=== PATIENT | female | born 1995 | race Caucasian/White ===

== ENCOUNTER → 2019-11-12 17:45 | Outpatient (BNVA) | payer SELFPAY | PROVIDERS: Family Provider Family Medicine; PCP Nurse Practitioner Family; Visit Provider Family Medicine | DX: R05 Cough (principal) | CPT/HCPCS: 87804 ==

== ENCOUNTER 2019-11-22 15:51 | Emergency (ER) | payer SELFPAY ==
[2019-11-22 15:54] VITALS: BP 142/85; PULSE 98; RESP 16; TEMP 36.4; O2SAT 100
[2019-11-22 17:09] LABS: Basophils % 0.4 %; Eosinophils # 0.1 10^3/uL (0.0-0.8); Eosinophils % 0.8 %; Hematocrit 41.2 % (37.0-47.0); Hemoglobin 13.8 g/dL (11.5-15.3); Lymphocytes # 3.1 10^3/uL (0.8-4.8); Lymphocytes % 41.2 %; Mean Corpuscular HGB Conc 33.5 g/dL (30.0-36.0); Mean Corpuscular Hemoglobin 26.8 pg (28.0-34.0); Mean Platelet Volume 10.3 fL (7.4-10.4); Monocytes # 0.4 10^3/uL (0.2-0.9); Neutrophils # 3.9 10^3/uL (1.8-7.7); Neutrophils % 52.5 %; Nucleated Red Blood Cells % 0 %; Platelet Count 260 10^3/cmm (130-400); Red Blood Count 5.15 10^6/uL (4.1-5.3); Red Cell Distribution Width 13.1 % (12.1-15.1); White Blood Count 7.4 10^3/uL (4.0-10.0)
[2019-11-22 17:12] LABS: HCG, Serum Qual Negative (Negative)
[2019-11-22 17:18] LABS: Alanine Aminotransferase 21 U/L (0-33); Albumin Level 4.7 g/dL (3.5-5.2); Alkaline Phosphatase 90 IU/L (35-105); Anion Gap 15.9 (5-19); Aspartate Amino Transferase 23 U/L (0-32); Blood Urea Nitrogen 9 mg/dL (6-20); Calcium 10.3 mg/dL (8.5-10.5); Carbon Dioxide 25 mmol/L (22-29); Chloride 101 mmol/L (98-107); Globulin 3.7 g/dL (1.3-4.6); Glucose 98 mg/dL (65-115); Potassium 3.9 mmol/L (3.5-5.1); Sodium 138 mmol/L (136-145); Total Bilirubin 0.3 mg/dL (0.15-1.2); Total Protein 8.4 g/dL (6.6-8.7)
--- NOTE | 2019-11-22 17:33 | W.ED.GENADLT ---
HPI - General Adult General: Chief complaint: Vaginal Bleeding Stated complaint: BLEEDING AND CRAMPING Time Seen by Provider: 11/22/19 17:33 Source: patient Mode of arrival: ambulatory Limitations: no limitations History of Present Illness: HPI narrative: Patient comes in today with abnormal vaginal bleeding. Patient stopped her control at the end of October. Since that time she has had some breakthrough bleeding. Patient appears well. Patient reports bleeding is small in the amount. Patient appears in no pain. Review of Systems General: Reports: 10 or more systems reviewed and unremarkable except in HPI and below : Reports: vaginal bleeding PFS ED PFSH: Social History (Updated 11/12/19 @ 17:39 by Viki Chow LPN) Smoking and tobacco status: current every day smoker Female Reproductive History: Date of last menstrual period: 11/10/19 Physical Exam Const: COMMON NORMALS: no apparent distress and oriented x3 GENERAL APPEARANCE: cooperative HENMT: COMMON NORMALS: normocephalic, external ears normal, EAC's normal, TM's normal bilaterally and external nose normal HEAD & SCALP: normal to inspection and normocephalic FACE & SINUS: normal facial exam NOSE: external nose normal GENERAL EAR: hearing not grossly impaired EXTERNAL EAR: Yes external ears normal EXTERNAL AUDITORY CANAL: EAC's normal TYMPANIC MEMBRANE: TM's normal bilaterally MOUTH: oral and palatal mucosa normal THROAT: posterior oropharynx normal Eye: COMMON NORMALS: PERRL and EOMs intact bilaterally PUPIL: Yes PERRL Neck/C-Spine: COMMON NORMALS: full ROM and no lymphadenopathy Lymph: LYMPHATIC: no lymphedema noted Chest: COMMONS NORMALS: inspection of chest normal and palpation of chest normal Resp: COMMON NORMALS: normal respiratory effort and clear to auscultation bilaterally AUSCULTATION: clear to auscultation bilaterally Cardio: COMMON NORMALS: regular rate and regular rhythm RATE: regular rate RHYTHM: regular rhythm GI: COMMON NORMALS: normal to inspection, nondistended, normoactive bowel sounds and non-tender : COMMON NORMALS: Yes no CVA tenderness BLADDER/KIDNEY EXAM: Yes no CVA tenderness Back/Pelvis: COMMON NORMALS: no CVA tenderness and thoracic and lumbar spine normal to inspection Extremity: COMMON NORMALS: normal to inspection GENERAL: No edema Neuro: COMMON NORMALS: oriented x3, moves all extremities and no focal motor deficits Psych: COMMON NORMALS: mental status grossly normal and cooperative Skin: COMMON NORMALS: no rashes or lesions noted GENERAL SKIN EXAM: no rashes or lesions noted Course Vital Signs: Vital signs: Vital Signs Temperature 97.6 F 11/22/19 18:02 Pulse Rate 92 11/22/19 18:02 Respiratory Rate 16 11/22/19 18:02 Blood Pressure 130/82 11/22/19 18:02 Pulse Oximetry 100 11/22/19 18:02 MDM - General Adult MDM Narrative: Medical decision making narrative: Patient comes in today with concerns for vaginal bleeding. On exam patient appears well. Respirations are even lungs are clear to auscultation. Abdomen soft nontender. Skin is warm and dry. Differential diagnosis includes UTI, miscarriage, ectopic , dysmenorrhea. Review labs were normal. No was noted on laboratory values. Hemoglobin adequate was normal. Reviewed exam with patient patient was pain-free. No signs of ectopic was noted. Reviewed exam with recommendations for follow-up and return. Lab Data: Labs: Lab Results 11/22/19 11/22/19 11/22/19 Range/Units 16:42 16:42 16:42 WBC 7.4 (4.0-10.0) 10^3/ uL RBC 5.15 (4.1-5.3) 10^6/u L Hgb 13.8 (11.5-15.3) g/dL Hct 41.2 (37.0-47.0) % MCV 80.0 L (81-99) fL MCH 26.8 L (28.0-34.0) pg MCHC 33.5 (30.0-36.0) g/dL RDW 13.1 (12.1-15.1) % Plt Count 260 (130-400) 10^3/c mm MPV 10.3 (7.4-10.4) fL Neut % (Auto) 52.5 % Lymph % (Auto) 41.2 % [place] % (Auto) 5.0 % Eos % (Auto) 0.8 % Baso % (Auto) 0.4 % Neut # (Auto) 3.9 (1.8-7.7) 10^3/u L Lymph # (Auto) 3.1 (0.8-4.8) 10^3/u L [place] # (Auto) 0.4 (0.2-0.9) 10^3/u L Eos # (Auto) 0.1 (0.0-0.8) 10^3/u L Baso # (Auto) 0.0 (0.0-0.1) 10^3/u L Nucleated RBC % (a uto) 0 % Nucleated RBCs # 0.0 /100WBC Sodium 138 (136-145) mmol/L Potassium 3.9 (3.5-5.1) mmol/L Chloride 101 (98-107) mmol/L Carbon Dioxide 25 (22-29) mmol/L Anion Gap 15.9 (5-19) BUN 9 (6-20) mg/dL Creatinine 0.7 (0.5-0.9) mg/dL GFR Calculation 102.0 (90-130) mL/min Glucose 98 (65-115) mg/dL Calcium 10.3 (8.5-10.5) mg/dL Total Bilirubin 0.3 (0.15-1.2) mg/dL AST 23 (0-32) U/L ALT 21 (0-33) U/L Alkaline Phosphata se 90 (35-105) IU/L Total Protein 8.4 (6.6-8.7) g/dL Albumin 4.7 (3.5-5.2) g/dL Globulin 3.7 (1.3-4.6) g/dL HCG, Qual Negative (Negative) Discharge Plan Discharge Patient Disposition: Home, Self-Care Clinical Impression: Vaginal bleeding Condition: Stable Prescriptions: No Action No Known Home Medications RF: 0 Discharge Orders: Discharge Order (Routine); Ordered 11/22/19 Ordered By: Yosi Almeida Referrals: Millicent Posey MD [Family Provider] - Franny Liu FNP [Primary Care Provider] - Discharge Diet: Usual diet Discharge Activity: Resume usual activity Patient Instructions: Menstruation (ED) Activity Restrictions/Additional Instructions: drink plenty of fluids Use ibuprofen as needed for pain REturn to ER for high fever or bleeding through more than one pad an hour Follow-up with primary care as needed Discharge Date/Time: 11/22/19 18:05 Coding Level of Care Code ED White Lead Grinder for Alyceg Fwd Exam Problem Focused
[2019-11-22 17:58] VITALS: BP 138/92; PULSE 98; RESP 16; TEMP 36.7; O2SAT 100
[2019-11-22 18:02] VITALS: BP 130/82; PULSE 92; RESP 16; TEMP 36.4; O2SAT 100
== END 2019-11-22 18:05 | disposition home or self-care (01) ==
PROVIDERS: Physician Assistant; Emergency Provider Nurse Practitioner Family; Family Provider Family Medicine; PCP Nurse Practitioner Family
DX: N93.9 Abnormal uterine and vaginal bleeding, unspecified (principal); F17.200 Nicotine dependence, unspecified, uncomplicated
CPT/HCPCS: 36415; 80053; 84703; 85025; 99281; 99282

== ENCOUNTER 2020-05-13 17:21 | Emergency (ER) | payer SELFPAY ==
[2020-05-13 17:29] VITALS: BP 130/83; PULSE 91; RESP 16; TEMP 36.8; O2SAT 98; BMI 30.9
[2020-05-13 18:42] LABS: Add Urine Microscopic? NO
[2020-05-13 18:48] LABS: Basophils % 0.3 %; Eosinophils # 0.1 10^3/uL (0.0-0.8); Eosinophils % 0.8 %; Hematocrit 41.9 % (37.0-47.0); Hemoglobin 13.6 g/dL (11.5-15.3); Lymphocytes % 25.1 %; Mean Corpuscular HGB Conc 32.5 g/dL (30.0-36.0); Mean Corpuscular Hemoglobin 27.1 pg (28.0-34.0); Mean Corpuscular Volume 83.6 fL (81-99); Mean Platelet Volume 10.5 fL (7.4-10.4); Monocytes # 0.6 10^3/uL (0.2-0.9); Monocytes % 4.8 %; Neutrophils # 8.24 10^3/uL (1.8-7.7); Neutrophils % 68.8 %; Nucleated Red Blood Cells % 0 %; Platelet Count 246 10^3/cmm (130-400); Red Blood Count 5.01 10^6/uL (4.1-5.3); Red Cell Distribution Width 13.4 % (12.1-15.1)
[2020-05-13 18:57] LABS: Bilirubin Urine Neg (NEGATIVE); Blood Urine Neg (Negative); Glucose Urine UA Norm (Normal); Ketones Urine Negative (Negative); Leukocyte Esterase Urine Negative (Negative); Nitrate Urine Negative (Negative); Protein Urine Neg (Negative); Urine Appearance Clear (CLEAR); Urine Color Yellow (Yellow); Urobilinogen Urine Norm (Negative); pH Urine 6 (5-7)
[2020-05-13 18:59] LABS: HCG Qualitative Urine. Negative (Negative)
[2020-05-13 19:11] LABS: Alanine Aminotransferase 10 U/L (0-33); Albumin Level 4.3 g/dL (3.5-5.2); Alkaline Phosphatase 72 IU/L (35-105); Anion Gap 13.8 (5-19); Aspartate Amino Transferase 14 U/L (0-32); Blood Urea Nitrogen 7 mg/dL (6-20); Calcium 8.9 mg/dL (8.5-10.5); Carbon Dioxide 25 mmol/L (22-29); Chloride 101 mmol/L (98-107); Globulin 3.2 g/dL (1.3-4.6); Glomerular Filtration Rate 101.1 mL/min (90-130); Glucose 92 mg/dL (65-115); Osmolality Calculated 277 mOsm/kg (285-295); Potassium 3.8 mmol/L (3.5-5.1); Sodium 136 mmol/L (136-145); Total Bilirubin 0.4 mg/dL (0.15-1.2); Total Protein 7.5 g/dL (6.6-8.7)
--- NOTE | 2020-05-13 19:13 | ED_ITS ---
HPI - Abdominal Pain General: Chief Complaint: Abdominal Pain Stated Complaint: ABD PAIN Time Seen by Provider: 05/13/20 19:12 History of Present Illness: HPI narrative: Patient is a 24-year-old female comes to the ED with abdominal pain and nausea. Abdominal pain is described as a cramping lower pelvic pain that started approximately 3 weeks ago and is continued to progress. Pain rated a 4 out of 10. She does endorse some constipation and dysuria but denies fever, hematuria, diarrhea or blood in the stools. Dysuria started today. She has had some mild nausea but no episodes of emesis. Patient endorses having daily acid reflux and takes Tums to help manage reflux. Currently here in the ED she has no acid reflux or heartburn. Patient's last period was on 04/29 and lasted 5 days. Patient says her. Bleeding usually lasts for approximately 7 days so last period was shorter than usual. Patient says she has had abdominal cramping like this before around periods but it is never lasted this long. Associated Symptoms: Reports constipation, dysuria, heartburn (Patient says she usually has daily heartburn, but no current heartburn symptoms while here in the ED.) and nausea; Denies chills, diarrhea, fever(s), hematochezia, hematuria and vomiting Related Data: Date of Last Menstrual Period: 04/29/20 Review of Systems Const: Denies: fever(s), chills or fatigue Eyes: Denies: change in vision or eye discomfort ENMT: Denies: throat pain, odynophagia, nasal discharge or nasal congestion Card: Denies: chest pain, palpitations, edema, swelling of feet/ankles, dyspnea on exertion or orthopnea Resp: Denies: dyspnea, productive cough or non-productive cough GI: Reports: abdominal pain, nausea, heartburn (Patient says she usually has daily heartburn, but no current heartburn symptoms while here in the ED.) and constipation; Denies: vomiting, diarrhea or hematochezia : Reports: dysuria; Denies: flank pain or hematuria Musc: Denies: neck pain, back pain or extremity swelling Skin/Breast: Denies: rash or new lesions Neuro: Denies: headache(s), numbness in extremities or weakness in extremities PFS ED PFSH: Social History Smoking and tobacco status: current every day smoker Female Reproductive History: Date of last menstrual period: 04/29/20 Physical Exam Const: COMMON NORMALS: no acute distress, patient oriented x3, healthy appearing and alert GENERAL APPEARANCE: cooperative and comfortable HENMT: COMMON NORMALS: normocephalic HEAD & SCALP: normocephalic MOUTH: Normal oral and palatal mucosa present THROAT: posterior oropharynx normal an d uvula midline Eye: COMMON NORMALS: Equal, round and reactive pupils present PUPIL: Yes Equal, round and reactive pupils present Neck/C-Spine: COMMON NORMALS: supple GENERAL: Yes normal visual inspection Resp: COMMON NORMALS: normal respiratory effort, No retractions, No use of accessory muscles and clear to auscultation bilaterally AUSCULTATION: clear to auscultation bilaterally Cardio: COMMON NORMALS: regular rate, regular rhythm, S1 normal heart sound present, S2 normal heart sound present, No gallops present (Cardio), No clicks present (Cardio), No murmurs present (Cardio) and Peripheral pulses 2+ throughout RATE: regular rate RHYTHM: regular rhythm HEART SOUNDS: S1 normal heart sound present and S2 normal heart sound present PERIPHERAL PULSES: Peripheral pulses 2+ throughout GI: COMMON NORMALS: Normal to inspection, nondistended, normoactive bowel sounds present, Soft to palpation and no masses PALPATION: Yes Soft to palpation, Yes Tenderness to palpation present (GI) (Right left lower abdominal tenderness upon palpation. ) Details: LLQ and RLQ and Yes Bladder palpation abnormal : COMMON NORMALS: Yes no CVA tenderness BLADDER/KIDNEY EXAM: Yes no CVA tenderness and Yes Bladder palpation abnormal Bladder abnormal details: tender Back/Pelvis: COMMON NORMALS: no CVA tenderness Extremity: COMMON NORMALS: normal to inspection and no pedal edema Neuro: COMMON NORMALS: patient oriented x3 SENSORIUM/ORIENTATION: Yes alert GAIT: Yes Normal gait present Skin: COMMON NORMALS: no rashes or lesions noted GENERAL SKIN EXAM: no rashes or lesions noted and dry skin Course Vital Signs: Vital signs: Vital Signs Temperature 98.2 F 05/13/20 17:29 Pulse Rate 64 05/13/20 22:00 Respiratory Rate 16 05/13/20 22:00 Blood Pressure 121/76 05/13/20 22:00 Pulse Oximetry 97 05/13/20 22:00 MDM - Abdominal Pain MDM Narrative: Medical decision making narrative: Patient is a 24-year-old female comes to the ED with lower abdominal pain and dysuria. Physical exam bladder tenderness upon palpation, no CVA tenderness. White blood cell count 12 CMP, UA were unremarkable. hCG was negative. CT of the abdomen was performed and it showed Mild circumferential urinary bladder wall thickening. With patient's white blood cell count, bladder tenderness and dysuria I decided to treat her for UTI even though her urinalysis was clean. Patient was put on a prescription of Bactrim to treat the UTI and was also set up prescription of Zofran as needed for any nausea. Patient also has an complaint of having daily acid reflux so I sent her home with a prescription for Protonix as well. Patient told to follow-up with PCP in 7 to 10 days for reevaluation. Return to ED precautions given. Patient understood and agreed with plan. Lab Data: Attestation: I reviewed the patient's lab results. Labs: Lab Results 05/13/20 05/13/20 05/13/20 Range/Units 18:28 18:28 18:30 WBC 12.0 H (4.0-10.0) 10^3/ uL RBC 5.01 (4.1-5.3) 10^6/u L Hgb 13.6 (11.5-15.3) g/dL Hct 41.9 (37.0-47.0) % MCV 83.6 (81-99) fL MCH 27.1 L (28.0-34.0) pg MCHC 32.5 (30.0-36.0) g/dL RDW 13.4 (12.1-15.1) % Plt Count 246 (130-400) 10^3/c mm MPV 10.5 H (7.4-10.4) fL Neut % (Auto) 68.8 % Lymph % (Auto) 25.1 % [place] % (Auto) 4.8 % Eos % (Auto) 0.8 % Baso % (Auto) 0.3 % Neut # (Auto) 8.24 H (1.8-7.7) 10^3/u L Lymph # (Auto) 3.0 (0.8-4.8) 10^3/u L [place] # (Auto) 0.6 (0.2-0.9) 10^3/u L Eos # (Auto) 0.1 (0.0-0.8) 10^3/u L Baso # (Auto) 0.0 (0.0-0.1) 10^3/u L Nucleated RBC % (a uto) 0 % Nucleated RBCs # 0.0 /100WBC Sodium (136-145) mmol/L Potassium (3.5-5.1) mmol/L Chloride (98-107) mmol/L Carbon Dioxide (22-29) mmol/L Anion Gap (5-19) BUN (6-20) mg/dL Creatinine (0.5-0.9) mg/dL GFR Calculation (90-130) mL/min Glucose (65-115) mg/dL Calculated Osmolal ity (285-295) mOsm/k g Calcium (8.5-10.5) mg/dL Total Bilirubin (0.15-1.2) mg/dL AST (0-32) U/L ALT (0-33) U/L Alkaline Phosphata se (35-105) IU/L Total Protein (6.6-8.7) g/dL Albumin (3.5-5.2) g/dL Globulin (1.3-4.6) g/dL HCG, Qual Negative (Negative) Urine Color Yellow (Yellow) Urine Appearance Clear (CLEAR) Urine pH 6 (5-7) Ur Specific Gravit y 1.020 (1.005-1.030) Urine Protein Neg (Negative) Urine Glucose (UA) Norm (Normal) Urine Ketones Negative (Negative) Urine Blood Neg (Negative) Urine Nitrate Negative (Negative) Urine Bilirubin Neg (NEGATIVE) Urine Urobilinogen Norm (Negative) mg/dL Ur Leukocyte Najma ase Negative (Negative) 05/13/20 Range/Units 18:30 WBC (4.0-10.0) 10^3/ uL RBC (4.1-5.3) 10^6/u L Hgb (11.5-15.3) g/dL Hct (37.0-47.0) % MCV (81-99) fL MCH (28.0-34.0) pg MCHC (30.0-36.0) g/dL RDW (12.1-15.1) % Plt Count (130-400) 10^3/c mm MPV (7.4-10.4) fL Neut % (Auto) % Lymph % (Auto) % [place] % (Auto) % Eos % (Auto) % Baso % (Auto) % Neut # (Auto) (1.8-7.7) 10^3/u L Lymph # (Auto) (0.8-4.8) 10^3/u L [place] # (Auto) (0.2-0.9) 10^3/u L Eos # (Auto) (0.0-0.8) 10^3/u L Baso # (Auto) (0.0-0.1) 10^3/u L Nucleated RBC % (a uto) % Nucleated RBCs # /100WBC Sodium 136 (136-145) mmol/L Potassium 3.8 (3.5-5.1) mmol/L Chloride 101 (98-107) mmol/L Carbon Dioxide 25 (22-29) mmol/L Anion Gap 13.8 (5-19) BUN 7 (6-20) mg/dL Creatinine 0.7 (0.5-0.9) mg/dL GFR Calculation 101.1 (90-130) mL/min Glucose 92 (65-115) mg/dL Calculated Osmolal ity 277 L (285-295) mOsm/k g Calcium 8.9 (8.5-10.5) mg/dL Total Bilirubin 0.4 (0.15-1.2) mg/dL AST 14 (0-32) U/L ALT 10 (0-33) U/L Alkaline Phosphata se 72 (35-105) IU/L Total Protein 7.5 (6.6-8.7) g/dL Albumin 4.3 (3.5-5.2) g/dL Globulin 3.2 (1.3-4.6) g/dL HCG, Qual (Negative) Urine Color (Yellow) Urine Appearance (CLEAR) Urine pH (5-7) Ur Specific Gravit y (1.005-1.030) Urine Protein (Negative) Urine Glucose (UA) (Normal) Urine Ketones (Negative) Urine Blood (Negative) Urine Nitrate (Negative) Urine Bilirubin (NEGATIVE) Urine Urobilinogen (Negative) mg/dL Ur Leukocyte Najma ase (Negative) Imaging Data ^: CT Abd/Pel: Attestation: I personally reviewed and interpreted this imaging study as follows: Radiologist's impression: [address] [place] [address] CT Scan Report Signed Patient: Graeme Ibarra Unit #: [id number] : [id number] Age/Sex: 24 / F ADM Date: 05/13/20 Loc: ER Room/Bed: Attending Dr: Ordering Provider/Ordering MD: Jamie Kaplan Date of Service: 05/13/20 Procedure(s): CT abdomen pelvis w con* [id number] Accession Number(s): [id number] Report Number: [id number] PROCEDURE INFORMATION: Exam: CT Abdomen And Pelvis With Contrast Exam date and time: 05/13/2020 7:42 PM Age: 24 years old Clinical indication: Constipation and nausea; Abdominal pain; Other: Lower and left side pain; Prior surgery; Surgery type: Ectopic ; Additional info: Abd pain with nausea, constipation TECHNIQUE: Imaging protocol: Computed tomography of the abdomen and pelvis with intravenous contrast. Axial, coronal and sagittal reformatted images were created and reviewed. Radiation optimization: All CT scans at this facility use at least one of these dose optimization techniques: automated exposure control; mA and/or kV adjustment per patient size (includes targeted exams where dose is matched to clinical indication); or iterative reconstruction. Contrast material: OMNI 300; Contrast volume: 95 ml; Contrast route: INTRAVENOUS (IV); [facility] Follow up 08/27/2014 1:55 PM RADIATION DOSE METRICS: Total DLP (mGy-cm): 1030.1 FINDINGS: Liver: Unremarkable. Gallbladder and bile ducts: No radiodense gallstones. No biliary ductal dilatation. Pancreas: Unremarkable. Spleen: Unremarkable. Adrenals: Unremarkable. Kidneys and ureters: No mass. No radiodense calculi. No hydronephrosis. Stomach and bowel: No bowel wall thickening. No obstruction. No pneumatosis. Appendix: Normal. Intraperitoneal space: No free fluid. No organized fluid collection. No free air. Vasculature: Unremarkable. No aneurysm. Lymph nodes: No pathologically enlarged lymph nodes. Bladder: Mild circumferential urinary bladder wall thickening, possibly secondary to underdistention. Reproductive: Unremarkable. Bones/joints: No acute osseous abnormality. Soft tissues: Unremarkable. CT/CT abdomen pelvis w con* [id number] IMPRESSION: 1. Mild circumferential urinary bladder wall thickening, possibly secondary to underdistention. Correlate with urinalysis to exclude cystitis. 2. Additional findings, as above. Radiation Dose CTDIVOL = (mGy): DLP = 1030.1 (mGy-cm) Dictated By: Mohinder Sparks MD Signed By: Mohinder Sparks MD Signed Date/Time: 05/13/202027 DD/ 26 Discharge Plan Discharge Patient Disposition: Home Clinical Impression: Symptoms of urinary tract infection Acid reflux Qualifiers: Esophagitis presence: esophagitis presence not specified Qualified Code(s): K21.9 - Gastro-esophageal reflux disease without esophagitis Condition: Stable Prescriptions: New pantoprazole 40 mg tablet,delayed release (DR/EC) 40 mg PO DAILY Qty: 30 RF: 0 Zofran 4 mg tablet 4 mg PO Q8H PRN (Reason: nausea and vomiting) Qty: 20 RF: 0 Bactrim DS 800-160 mg tablet 1 tab PO BID 5 Days Qty: 10 RF: 0 No Action No Known Home Medications RF: 0 Discharge Orders: Discharge Order (Routine); Ordered 05/13/20 Ordered By: Jamie Kaplan Discharge Diet: Regular Discharge Activity: Resume usual activity Patient Instructions: Urinary Tract Infection in Women (ED), Gastroesophageal Reflux Disease (ED) Activity Restrictions/Additional Instructions: Follow-up with medical provider as directed in 7-10 days. Take medications as prescribed. Return to the ER or your medical provider if condition worsens. Please read and understand discharge instructions. If any questions, please ask. Discharge Date/Time: 05/13/20 22:10 Coding Level of Care Code ED Binder Cutter for Chg Fwd Exam Comprehensive
--- NOTE | 2020-05-13 19:35 | CTR_ITS ---
PROCEDURE INFORMATION: Exam: CT Abdomen And Pelvis With Contrast Exam date and time: 05/13/2020 7:42 PM Age: 24 years old Clinical indication: Constipation and nausea; Abdominal pain; Other: Lower and left side pain; Prior surgery; Surgery type: Ectopic ; Additional info: Abd pain with nausea, constipation TECHNIQUE: Imaging protocol: Computed tomography of the abdomen and pelvis with intravenous contrast. Axial, coronal and sagittal reformatted images were created and reviewed. Radiation optimization: All CT scans at this facility use at least one of these dose optimization techniques: automated exposure control; mA and/or kV adjustment per patient size (includes targeted exams where dose is matched to clinical indication); or iterative reconstruction. Contrast material: OMNI 300; Contrast volume: 95 ml; Contrast route: INTRAVENOUS (IV); COMPARISON: [facility] Follow up 08/27/2014 1:55 PM RADIATION DOSE METRICS: Total DLP (mGy-cm): 1030.1 FINDINGS: Liver: Unremarkable. Gallbladder and bile ducts: No radiodense gallstones. No biliary ductal dilatation. Pancreas: Unremarkable. Spleen: Unremarkable. Adrenals: Unremarkable. Kidneys and ureters: No mass. No radiodense calculi. No hydronephrosis. Stomach and bowel: No bowel wall thickening. No obstruction. No pneumatosis. Appendix: Normal. Intraperitoneal space: No free fluid. No organized fluid collection. No free air. Vasculature: Unremarkable. No aneurysm. Lymph nodes: No pathologically enlarged lymph nodes. Bladder: Mild circumferential urinary bladder wall thickening, possibly secondary to underdistention. Reproductive: Unremarkable. Bones/joints: No acute osseous abnormality. Soft tissues: Unremarkable. CT/CT abdomen pelvis w con* [id number] IMPRESSION: 1. Mild circumferential urinary bladder wall thickening, possibly secondary to underdistention. Correlate with urinalysis to exclude cystitis. 2. Additional findings, as above. Radiation Dose CTDIVOL = (mGy): DLP = 1030.1 (mGy-cm)
[2020-05-13] MEDS: iohexol 300 mg/mL 100 mL Btl IV (20:02)
[2020-05-13 20:12] VITALS: BP 129/77; PULSE 67; RESP 16; O2SAT 99
[2020-05-13] MEDS: sodium chloride 0.9% 1,000 ML 999 ML IV (20:23)
[2020-05-13] MEDS: ondansetron 2 mg/ML SDV 2 mL 4 MG IVP (20:23)
[2020-05-13 21:00] VITALS: BP 122/76; PULSE 59; O2SAT 99
[2020-05-13 22:00] VITALS: BP 121/76; PULSE 64; RESP 16; O2SAT 97
[2020-05-13] MEDS: sulfamethoxazole-trimeth DS 160-800 mg Tablet 1 TAB PO (22:06)
== END 2020-05-13 22:10 | disposition home or self-care (01) ==
PROVIDERS: Emergency Medicine; Emergency Provider Physician Assistant
DX: K21.9 Gastro-esophageal reflux disease without esophagitis (principal); F17.210 Nicotine dependence, cigarettes, uncomplicated
CPT/HCPCS: 12345; 36415; 74177; 80053; 81003; 81025; 85025; 96361; 96374; 96375; 99283; J2405; J7030; Q9967

== ENCOUNTER → 2020-12-09 12:12 | Outpatient (BNVA) | payer OTHER, SELFPAY | PROVIDERS: Visit Provider Nurse Practitioner Family | DX: Z20.828 Contact with and (suspected) exposure to other viral communicable diseases (principal) | CPT/HCPCS: 87635 ==

== ENCOUNTER 2021-06-30 12:30 | Emergency (ER) | payer SELFPAY ==
[2021-06-30 12:50] VITALS: BP 127/74; PULSE 73; RESP 16; TEMP 36.9; O2SAT 100
--- NOTE | 2021-06-30 14:09 | ED_ITS ---
HPI - Dental/Oral General: Chief complaint: Dental/Oral Stated complaint: TOOTH PAIN Time Seen by Provider: 06/30/21 13:36 History of Present Illness: HPI Narrative: Patient is a 25-year-old female that is 23 weeks and comes to the ED with dental pain. Symptoms started yesterday. She has pain and swelling to the right upper molar region of the mouth. She has been taking Tylenol for the pain. She has an appointment with the dentist scheduled for early August. Associated symptoms: Denies fever(s) or odynophagia Review of Systems Const: Denies: fever(s), chills or fatigue Eyes: Denies: change in vision or eye discomfort ENMT: Reports: dental pain; Denies: throat pain, odynophagia, nasal discharge or nasal congestion Card: Denies: chest pain, palpitations, edema, swelling of feet/ankles, dyspnea on exertion or orthopnea Resp: Denies: dyspnea, productive cough or non-productive cough GI: Denies: abdominal pain, nausea, vomiting, diarrhea, constipation or hematochezia : Denies: flank pain, dysuria or hematuria Musc: Denies: neck pain, back pain or extremity swelling Skin/Breast: Denies: rash or new lesions Neuro: Denies: headache(s), numbness in extremities or weakness in extremities PFSH ED PFSH: Social History Smoking and tobacco status: current every day smoker Alcohol intake: never Female Reproductive History: Date of last menstrual period: 04/29/20 Physical Exam Const: COMMON NORMALS: no acute distress, patient oriented x3, healthy appearing and alert GENERAL APPEARANCE: cooperative and comfortable HENMT: COMMON NORMALS: normocephalic HEAD & SCALP: normocephalic MOUTH: Normal oral and palatal mucosa present TEETH & GINGIVA: Yes abnormal tooth and associated gingiva upper right second molar tender and with associated gingival edema, Yes caries (Extensive dental caries) and Yes poor dentition THROAT: posterior oropharynx normal and uvula midline Neck/C-Spine: COMMON NORMALS: supple GENERAL: Yes normal visual inspection Resp: COMMON NORMALS: normal respiratory effort, No retractions, No use of accessory muscles and clear to auscultation bilaterally AUSCULTATION: clear to auscultation bilaterally Cardio: COMMON NORMALS: regular rate, regular rhythm, S1 normal heart sound present, S2 normal heart sound present, No gallops present (Cardio), No clicks present (Cardio), No murmurs present (Cardio) and Peripheral pulses 2+ throughout RATE: regular rate RHYTHM: regular rhythm HEART SOUNDS: S1 normal heart sound present and S2 normal heart sound present PERIPHERAL PULSES: Peripheral pulses 2+ throughout GI: COMMON NORMALS: Normal to inspection, nondistended, normoactive bowel sounds present, Soft to palpation, non-tender and no masses PALPATION: Yes Soft to palpation : COMMON NORMALS: Yes no CVA tenderness BLADDER/KIDNEY EXAM: Yes no CVA tenderness Back/Pelvis: COMMON NORMALS: no CVA tenderness Extremity: COMMON NORMALS: normal to inspection Neuro: COMMON NORMALS: patient oriented x3 and moves all extremities SENSORIUM/ORIENTATION: Yes alert Skin: GENERAL SKIN EXAM: dry skin Course Vital Signs: Vital signs: Vital Signs Temperature 98.5 F 06/30/21 12:50 Pulse Rate 72 06/30/21 14:40 Respiratory Rate 16 06/30/21 14:40 Blood Pressure 124/72 06/30/21 14:40 Pulse Oximetry 100 06/30/21 14:40 MDM - Dental/Oral MDM Narrative: Medical decision making narrative: Patient is a 25-year-old female who comes to the ED with dental pain. Patient has extensive dental caries as upper right second molar dental decay with gingival edema. Patient has a dentist appointment in 10 August. Patient's vitals were stable and she appears nontoxic and in no acute distress. She was discharged home with prescription for clindamycin. Return to ED precautions given. Patient understood agree with plan. Discharge Plan Discharge Patient Disposition: Home Clinical Impression: Pain due to dental caries Condition: Stable Prescriptions: New clindamycin HCl 150 mg capsule 300 mg PO QID 7 Days Qty: 56 RF: 0 No Action No Known Home Medications RF: 0 Discharge Orders: Discharge ED (Routine); Ordered 06/30/21 Ordered By: Jamie Kaplan Discharge Diet: Regular Discharge Activity: Increase activity as tolerated Patient Instructions: Dental Caries (ED) Activity Restrictions/Additional Instructions: Follow-up with the dentist for further evaluation as soon as possible. Take medications as prescribed. Take [id number] Tylenol for pain. Return to the ER or your medical provider if condition worsens. Please read and understand discharge instructions. Thank you for choosing [facility] for your healthcare needs today. Please realize this is an emergency room and that we are providing you with a medical screening exam and this may not be complete and all inclusive of all the testing and or work up that you may need to determine your ailment or severity of your illness. It is very important that you follow up as instructed or that you return to the Emergency Department should you have concerns or if your condition changes or worsens in any way. Coding Level of Care Code ED Ceramic Painter for Daxa Farley
[2021-06-30] MEDS: clindamycin 150 mg Capsule 300 MG PO (14:34)
[2021-06-30 14:40] VITALS: BP 124/72; PULSE 72; RESP 16; O2SAT 100
== END 2021-06-30 14:41 | disposition home or self-care (01) ==
PROVIDERS: Emergency Provider Physician Assistant
DX: K02.9 Dental caries, unspecified (principal); F17.210 Nicotine dependence, cigarettes, uncomplicated
CPT/HCPCS: 99282

== ENCOUNTER → 2023-10-25 15:31 | Outpatient (BNVA) | payer BC, SELFPAY | PROVIDERS: Visit Provider Nurse Practitioner | DX: Z02.83 Encounter for blood-alcohol and blood-drug test (principal); F41.1 Generalized anxiety disorder | CPT/HCPCS: 80306 ==

== ENCOUNTER 2023-12-14 15:52 | Outpatient (CLI) | payer BC, SELFPAY ==
[2023-12-14 16:50] LABS: Basophils % 0.4 %; Eosinophils # 0.1 10^3/uL (0.0-0.8); Eosinophils % 1.9 %; Hematocrit 37.3 % (36-47); Lymphocytes # 2.4 10^3/uL (0.8-4.8); Mean Corpuscular HGB Conc 33.2 g/dL (30-55); Mean Corpuscular Hemoglobin 27.7 pg (27-33); Mean Corpuscular Volume 83.3 fl (85-98); Mean Platelet Volume 10.1 fL (7.4-10.4); Monocytes # 0.5 10^3/uL (0.2-0.9); Monocytes % 6.8 %; Neutrophils # 3.85 10^3/uL (1.8-7.7); Neutrophils % 55.6 %; Nucleated Red Blood Cells % 0 %; Platelet Count 234 10^3/cmm (157-399); Red Blood Count 4.48 10^6/uL (3.85-5.65); Red Cell Distribution Width 13.2 % (12.1-15.1); White Blood Count 6.92 10^3/uL (3.29-11.43)
[2023-12-14 17:38] LABS: Alanine Aminotransferase 11 U/L (0-33); Albumin Level 4.2 g/dL (3.5-5.2); Alkaline Phosphatase 110 U/L (35-105); Anion Gap 15.4 (5-19); Aspartate Amino Transferase 15 U/L (0-32); Blood Urea Nitrogen 14 mg/dL (6-20); Calcium 9.2 mg/dL (8.5-10.5); Carbon Dioxide 24 mmol/L (22-29); Chloride 104 mmol/L (98-107); Glomerular Filtration Rate 98.9 mL/min (90-130); Glucose 82 mg/dL (65-115); Osmolality Calculated 288 mOsm/kg (285-295); Potassium 4.4 mmol/L (3.5-5.1); Sodium 139 mmol/L (136-145); Total Bilirubin 0.4 mg/dL (0.15-1.2); Total Protein 7.2 g/dL (6.6-8.7)
[2023-12-14 21:18] LABS: Hepatitis A Antibody IgM Non-Reactive (Nonreactive); Hepatitis B Core AB, Total Non-Reactive (Nonreactive); Hepatitis B Surface AB < 3.5 (11.5-1000); Hepatitis B Surface Antigen Non-Reactive (Nonreactive); Hepatitis C Virus Antibody Non-Reactive (Nonreactive)
[2023-12-17 14:09] LABS: Quantiferon Mitogen 8.44 IU/mL; Quantiferon Nil 0.06 IU/mL; Quantiferon Plus TB1 0.01 IU/mL; Quantiferon Plus TB2 0.06 IU/mL; Quantiferon TB Gold NEGATIVE (NEGATIVE)
== END 2023-12-14 15:53 | disposition home or self-care (01) ==
LOC: LAB 15:56
PROVIDERS: PCP Nurse Practitioner Family; Visit Provider Nurse Practitioner Family
DX: L40.0 Psoriasis vulgaris (principal)
CPT/HCPCS: 36415; 80053; 85025; 86480; 86705; 86706; 86709; 86803; 87340

== ENCOUNTER → 2023-12-23 10:53 | Outpatient (BNVA) | payer BC, SELFPAY | PROVIDERS: Visit Provider Nurse Practitioner | DX: F19.11 Other psychoactive substance abuse, in remission (principal); F41.1 Generalized anxiety disorder; F90.0 Attention-deficit hyperactivity disorder, predominantly inattentive type | CPT/HCPCS: 80306 ==

== ENCOUNTER 2024-01-10 10:11 | Outpatient (CLI) | payer BC, SELFPAY ==
--- NOTE | 2024-01-10 10:22 | XR_ITS ---
WS: [id number] Examination: XR knee LT 4V [id number] Reason for Exam: UNSPECIFIED INJURY OF LEFT LOWER LEG/L KNEE PAIN Date: January 10, 2024 Comparison: None. Findings: The bone density is maintained. There is no destruction there is no displaced fracture or dislocation . The joint space is maintained. A large suprapatellar bursal effusion is noted. Impression: A large effusion is noted. I see no displaced fracture.
== END 2024-01-10 10:12 | disposition home or self-care (01) ==
LOC: RAD 10:14
PROVIDERS: Visit Provider Nurse Practitioner Family
DX: S89.92XA Unspecified injury of left lower leg, initial encounter (principal); X58.XXXA Exposure to other specified factors, initial encounter; M25.462 Effusion, left knee
CPT/HCPCS: 73564

== ENCOUNTER → 2024-02-23 08:15 | Outpatient (BNVA) | payer BC, MEDICAID, SELFPAY | PROVIDERS: Referring Provider Nurse Practitioner Family; Visit Provider Student in an Organized Health Care Education/Training Program | DX: M25.562 Pain in left knee (principal); M25.362 Other instability, left knee | CPT/HCPCS: 73560; 73565 ==

== ENCOUNTER 2024-07-16 08:45 | Outpatient (CLI) | payer BC, MEDICAID, SELFPAY ==
--- NOTE | 2024-07-16 08:52 | MR_ITS ---
WS: [id number] MRI BRAIN WITH AND WITHOUT CONTRAST HISTORY: MIGRAINES COMPARISON: None available. TECHNIQUE: Multiplanar imaging performed through the brain with MultiHance 17 ml's IV. No acute infarcts are seen. Amaya-white matter differentiation is well preserved. There are a few scat tered T2 and FLAIR signal hyperintensities. No prior infarct. No susceptibility artifacts or prior lacunar infarcts. Ventricles and extra-axial spaces are normal. Clivus and pituitary gland are normal. Cerebellar tonsils extend 7.3 mm below the foramen magnum. Cerebellar tonsils are pointed and is yurok ding of the posterior fossa. Slightly greater descent of the RIGHT cerebellar tonsil. The visualized cervical cord is normal size. Postcontrast images are negative for masses or vascular malformations. Dural venous sinuses are normal. Paranasal sinuses: Well aerated with no significant disease. Mastoid air cells: Normal. Calvarium and scalp: Normal. MR/MR head wo/w con [id number] IMPRESSION: 1. Chiari I malformation. Cerebellar tonsils extend 7.3 mm below the foramen m agnum. 2. No hydrocephalus. 3. Minimal small vessel ischemic disease. 4. No prior infarct. 5. Recommendation: MRI cervical spine with and without contrast to evaluate fo r syrinx which can be associated with the Chiari I malformation.
[2024-07-16] MEDS: gadobenate dimeglumine 20 mL vial 17 ML IV (09:31)
== END 2024-07-16 08:47 | disposition home or self-care (01) ==
PROVIDERS: Visit Provider Nurse Practitioner Family
DX: Q07.00 Arnold-Chiari syndrome without spina bifida or hydrocephalus (principal); G43.909 Migraine, unspecified, not intractable, without status migrainosus
CPT/HCPCS: 70553

== ENCOUNTER 2024-09-07 08:51 | Outpatient (CLI) | payer BC, MEDICAID, SELFPAY ==
--- NOTE | 2024-09-07 08:59 | MR_ITS ---
WS: [id number] MRI CERVICAL SPINE with and without contrast HISTORY: CHIARI MALFORMATION TYPE 1 COMPARISON: MRI brain 07/16/2024 Technique: Multiplanar, multisequence noncontrast imaging of the cervical spine. Normal cervical alignment with no compression fracture or significant disc space narrowing. Signal within the cervical cord is normal. Visualized posterior fossa is unremarkable. Cerebellar tonsils extend 6.8 mm below the foramen magnum with mild crowding of the foramen magnum. F ourth ventricle is normal. There is no hydrocephalus identified. C2-C3: Normal. C3-C4: Normal. C4-C5: Normal. C5-C6: Small LEFT paracentral disc protrusion with effacement of CSF. Very slight contact on the vent ral thecal sac but no stenosis. C6-C7: Normal. C7-T1: Normal. Small cervical chain lymph nodes. No adenopathy. Lymph nodes measure up to 9 mm. On the postcontrast imaging no enhancement along the cervical cord. No syrinx is identified. MR/MR cervical spine wo/w [id number] IMPRESSION: 1. Chiari I malformation. Cerebellar tonsils extend 6.8 mm below the foramen m agnum. No hydrocephalus or dilated fourth ventricle. 2. No cervical cord syrinx. No enhancing tumor. 3. Small LEFT paracentral disc protrusion at C5-6.
[2024-09-07] MEDS: gadobenate dimeglumine 5 mL vial IV (09:08)
== END 2024-09-07 08:52 | disposition home or self-care (01) ==
PROVIDERS: PCP Nurse Practitioner Family; Visit Provider Nurse Practitioner Family
DX: G93.5 Compression of brain (principal); M50.222 Other cervical disc displacement at C5-C6 level
CPT/HCPCS: 72156

== ENCOUNTER → 2024-11-06 13:22 | Outpatient (BNVA) | payer BC, SELFPAY | PROVIDERS: PCP Nurse Practitioner Family; Visit Provider Nurse Practitioner | DX: J10.1 Influenza due to other identified influenza virus with other respiratory manifestations (principal) | CPT/HCPCS: 87071; 87400; 87880 ==

== ENCOUNTER 2024-12-04 09:56 | Outpatient (CLI) | payer BC, MEDICAID, SELFPAY ==
--- NOTE | 2024-12-04 10:15 | MR_ITS ---
WS: [id number] MRI LUMBAR SPINE WITH AND WITHOUT CONTRAST HISTORY: History of Chiari malformation. Neck and back pain. COMPARISON: None available. TECHNIQUE: Sagittal and axial multisequence imaging is submitted. Postcontrast imaging 18 mL MultiHance. Localizer image demonstrates mild Chiari I malformation that has been previously described. Normal lumbar alignment with no compression fractures or marrow edema. Mild disc space narrowing and desiccation at L5-S1. Conus terminates normally at L1-2 disc level. L1-L2: Normal. L2-L3: Normal. L3-L4: Mild ligamentum flavum hypertrophy. No stenosis. L4-L5: Mild annular disc bulge with a central to LEFT paracentral disc protrusion. Disc protrusion contacts the traversing LEFT L5 nerve root. LEFT subarticular recess and LEFT foraminal stenosis is mild. L5-S1: Mild annular disc bulge with disc contacting the LEFT S1 nerve root. Disc osteophyte extends into the LEFT foramen causing mild stenosis. Minimal RIGHT foraminal stenosis also. Paravertebral soft tissues are normal. Postcontrast imaging is negative. No discitis or osteomyelitis. MR/MR lumbar spine wo/w con [id number] IMPRESSION: 1. No high-grade central or foraminal stenosis. 2. L4-5: Central and LEFT paracentral disc protrusion contacts the traversing LEFT L5 nerve root. Mild LEFT subarticular recess and LEFT foraminal stenosis d ue to disc osteophyte disease. 3. L5-S1: Mild disc bulge contacting the LEFT S1 nerve root. Mild subarticular recess and foraminal stenosis. 4. No abnormal enhancement.
[2024-12-04] MEDS: gadobenate dimeglumine 20 mL vial IV (10:57)
== END 2024-12-04 09:57 | disposition home or self-care (01) ==
PROVIDERS: PCP Nurse Practitioner Family; Visit Provider Psychiatry & Neurology Neurology
DX: R25.2 Cramp and spasm (principal); M51.26 Other intervertebral disc displacement, lumbar region; R93.7 Abnormal findings on diagnostic imaging of other parts of musculoskeletal system; M48.061 Spinal stenosis, lumbar region without neurogenic claudication; M25.78 Osteophyte, vertebrae; M51.86 Other intervertebral disc disorders, lumbar region; M51.379 Other intervertebral disc degeneration, lumbosacral region without mention of lumbar back pain or lower extremity pain; M48.07 Spinal stenosis, lumbosacral region; G93.5 Compression of brain; M51.369 Other intervertebral disc degeneration, lumbar region without mention of lumbar back pain or lower extremity pain
CPT/HCPCS: 72158

== ENCOUNTER → 2024-12-13 09:09 | Outpatient (BNVA) | payer BC, MEDICAID, SELFPAY | PROVIDERS: PCP Nurse Practitioner Family; Referring Provider Psychiatry & Neurology Neurology; Visit Provider Orthopaedic Surgery | DX: M54.50 Low back pain, unspecified (principal) | CPT/HCPCS: 72110 ==

== ENCOUNTER → 2025-01-12 10:24 | Outpatient (BNVA) | payer BC, MEDICAID, SELFPAY | PROVIDERS: PCP Nurse Practitioner Family; Visit Provider Family Medicine | DX: R39.9 Unspecified symptoms and signs involving the genitourinary system (principal) | CPT/HCPCS: 81000 ==

== ENCOUNTER 2025-02-06 17:21 | Emergency (ER) | payer BC, MEDICAID, SELFPAY ==
[2025-02-06 17:23] VITALS: BP 116/74; PULSE 68; TEMP 37; O2SAT 98; BMI 31.7
--- NOTE | 2025-02-06 17:37 | W.ED.ANIMALB ---
HPI - Animal Bite General: Chief Complaint: Animal Bite Stated Complaint: cat bite R index finger Time Seen by Provider: 02/06/25 17:37 History of Present Illness: 29-year-old female presents emergency room she was bit yesterday by a stray cat on her right index finger she has 2 puncture wounds on the dorsum of the finger over the proximal phalanx she has redness swelling with some proximal lymphangitic streaking. She has not had any fever. Related Data Home Medications ?Medication ?Instructions ?Recorded ?Confirmed ixekizumab 40 mg/0.5 mL mg SUBCUT 09/17/24 01/24/25 subcutaneous syringe (Taltz Syringe) Previous Rx's ?Medication ?Instructions ?Recorded Patellar Stabilizing Brace, Left #1 ea 02/23/24 Knee Patellar Stabilizing Brace hinged #1 ea 02/28/24 , Left Knee ibuprofen 800 mg tablet 800 mg PO DAILY #30 tabs 11/20/24 fluoxetine 40 mg capsule (Prozac) 40 mg PO DAILY #30 caps 11/26/24 dextroamphetamine-amphetamine ER 20 mg PO DAILY 30 days #30 caps 11/27/24 20 mg 24hr capsule,extend release (Adderall XR) dextroamphetamine-amphetamine ER 20 mg PO QAM 30 days #30 caps 11/27/24 20 mg 24hr capsule,extend release (Adderall XR) bupropion HCl 150 mg 24 hr tablet, 150 mg PO QAM #30 tabs 01/24/25 extended release (Wellbutrin XL) amoxicillin 875 mg-potassium 1 tab PO BID #20 tabs 02/06/25 clavulanate 125 mg tablet Allergies Allergy/AdvReac Type Severity Reaction Status Date / Time No Known Allergies Allergy Verified 02/06/25 17:29 [facility] ED PFS: Medical History History of abuse of recreational drug ADHD, predominantly inattentive type Generalized anxiety disorder Psychiatric care Social History Smoking and tobacco/nicotine status: current every day tobacco/nicotine user Alcohol intake: never Substance/Drug Use: never Physical Exam Extremity: OTHER: Puncture wounds on the dorsum of the right index finger. There is localized erythema and some swelling some lymphangitic streaking proximally. No epitrochlear or axillary lymph nodes are noted Course Vital Signs: Vital signs: Vital Signs Temperature 98.6 F 02/06/25 17:23 Pulse Rate 69 02/06/25 18:30 Respiratory Rate 16 02/06/25 18:30 Blood Pressure 119/69 02/06/25 18:30 Pulse Oximetry 96 02/06/25 18:30 Oxygen Delivery Me thod Room Air 02/06/25 17:23 MDM - Animal Bite Medical Decision Making Cat bite with localized cellulitis. Start oral antibiotics Augmentin twice daily for 10 days. In addition to this start patient on rabies vaccination was given immunoglobulin here. Rabies series schedule given to the patient. Return if has further problems No radiology studies performed this visit Discharge Plan Discharge Patient Disposition: Home Clinical Impression: Cat bite, Cellulitis and abscess of finger, unspecified Condition: Stable Prescriptions: New amoxicillin-pot clavulanate 875-125 mg tablet 1 tab PO BID Qty: 20 0RF No Action (DME) Patellar Stabilizing Brace, Left Knee See Rx Instructions .Route .MEDSUPPLY Qty: 1 0RF Rx Instructions: As directed Taltz Syringe 40 mg/0.5 mL syringe SUBCUT fluoxetine [Prozac] 40 mg capsule 40 mg PO DAILY Qty: 30 2RF dextroamphetamine-amphetamine [Adderall XR] 20 mg capsule,extended release 24hr 20 mg PO DAILY 30 Days Qty: 30 0RF dextroamphetamine-amphetamine [Adderall XR] 20 mg capsule,extended release 24hr 20 mg PO QAM 30 Days Qty: 30 0RF bupropion HCl [Wellbutrin XL] 150 mg tablet extended release 24 hr 150 mg PO QAM Qty: 30 1RF (DME) Patellar Stabilizing Brace hinged , Left Knee See Rx Instructions .Route .MEDSUPPLY Qty: 1 0RF Rx Instructions: As directed ibuprofen 800 mg tablet 800 mg PO DAILY Qty: 30 3RF Discharge Orders: Discharge ED (Routine); Ordered 02/06/25 Ordered By: Faraz Samaniego Referrals: Deepthi Allison, CUSTOMER SERVICE SECURITY OFFICER [Primary Care Provider, Nurse Practitioner] Discharge Diet: Usual diet Discharge Activity: Increase activity as tolerated Patient Instructions: Opioid Safety, Pain Management Activity Restrictions/Additional Instructions: Thank you for choosing [facility] for your healthcare needs today. It is very important that you follow up as instructed or that you return to the Emergency Department should you have concerns or if your condition changes or worsens in any way. You are seen in the emergency room after being bitten by cat. You do have a mild cellulitis on your right index finger you are started on oral antibiotics for this. Your rabies vaccine and immunoglobulin or started you should follow-up with us as directed in your discharge instructions to complete the full course. If you have any worsening of symptoms return to the emergency room. Your tetanus was also updated today while you are in the emergency room. Print Language: Macedonian Coding Level of Care Code ED Recycling Collections Driver for Daxa Farley
[2025-02-06] MEDS: tetanus-dipt-pertussis 0.5 mL SDV IM (17:58)
[2025-02-06] MEDS: rabies vaccine 2.5 unit SDV IM (18:00)
[2025-02-06] MEDS: rabies IG 300 unit/mL SDV 1 mL 1680 UNIT IM (18:04)
[2025-02-06 18:30] VITALS: BP 119/69; PULSE 69; RESP 16; O2SAT 96
== END 2025-02-06 18:32 | disposition home or self-care (01) ==
PROVIDERS: Emergency Provider Family Medicine; PCP Nurse Practitioner Family
DX: S61.250A Open bite of right index finger without damage to nail, initial encounter (principal); L03.011 Cellulitis of right finger; W55.01XA Bitten by cat, initial encounter; Z72.0 Tobacco use; Z20.3 Contact with and (suspected) exposure to rabies; Z29.14 Encounter for prophylactic rabies immune globulin
CPT/HCPCS: 90375; 90471; 90675; 90715; 99283

== ENCOUNTER 2025-02-25 16:11 | Oncology outpatient (recurring) (ONCR) | payer BC, MEDICAID, SELFPAY ==
[2025-02-12] MEDS: rabies vaccine 2.5 unit SDV IM (16:38)
[2025-02-18] MEDS: rabies vaccine 2.5 unit SDV IM (16:16)
[2025-02-25] MEDS: rabies vaccine 2.5 unit SDV IM (16:26)
== END 2025-03-09 23:59 | disposition home or self-care (01) ==
PROVIDERS: PCP Nurse Practitioner Family; Visit Provider Family Medicine
DX: Z53.9 Procedure and treatment not carried out, unspecified reason; Z23 Encounter for immunization; Z20.3 Contact with and (suspected) exposure to rabies; S61.250A Open bite of right index finger without damage to nail, initial encounter; W55.01XA Bitten by cat, initial encounter
CPT/HCPCS: 90471; 90675

== ENCOUNTER 2025-04-02 07:00 | Outpatient (CLI) | payer BC, MEDICAID, SELFPAY ==
--- NOTE | 2025-04-02 07:10 | MR_ITS ---
WS: [id number] MRI HEAD WITH CONTRAST TECHNIQUE: Sagittal T1, T2 axial, T2 axial FLAIR, axial susceptibility weighted imaging, axial diffusion weighted images, and coronal T2 images were obtained. Pre and post-T1 axial and post T1 coronal images. ADC and FSPGR images. CLINICAL INFORMATION: G93.5 - Compression of brain COMPARISON: MRI 2023 FINDINGS: No evidence of restricted diffusion to suggest acute ischemia. Chiari I malformation is unchanged with cerebellar tonsils 7 mm below the foramen magnum. Mild crowding at the foramen magnum. No hydrocephalus. Normal fourth ventricle. No hemosiderin on the susceptibly weighted images. Normal vascular flow voids at the skull base. No extra-axial fluid collections. Paranasal sinuses and mastoid air cells are well aerated. No hemosiderin on the susceptibly weighted images. No abnormal gadolinium enhancement. Normal dural venous sinuses. MR/MR head wo/w con [id number] IMPRESSION: 1. No evidence of restricted diffusion to suggest acute ischemia. 2. Stable Chiari I malformation with cerebellar tonsils approximately 7 mm bel ow the foramen magnum. Mild crowding of the foramen magnum. 3. No hydrocephalus. 4. No other significant change compared to previous.
[2025-04-02] MEDS: gadobenate dimeglumine 20 mL vial 18 ML IV (07:46)
== END 2025-04-02 07:01 | disposition home or self-care (01) ==
PROVIDERS: PCP Nurse Practitioner Family; Visit Provider Psychiatry & Neurology Neurology
DX: G93.5 Compression of brain (principal)
CPT/HCPCS: 70553

== ENCOUNTER 2025-05-28 10:05 | Outpatient (CLI) | payer BC, MEDICAID, SELFPAY | END 2025-05-28 10:06 | disposition home or self-care (01) | LOC: LAB 10:08 | PROVIDERS: PCP Nurse Practitioner Family; Visit Provider Nurse Practitioner Family | DX: L40.0 Psoriasis vulgaris (principal) | CPT/HCPCS: 36415; 86480 ==